=== PATIENT | male | born 1980 | race Two or more races ===

== ENCOUNTER 2020-08-18 12:49 | Emergency (ER) | payer OTHER ==
[~2020-08-18] VITALS: Ht 175.3 cm; Wt 95.3 kg
[2020-08-18] MEDS ORDERED: CYCLOBENZAPRINE10 MG PO (16:35)
[2020-08-18] MEDS ORDERED: KETO10TA2 PO (16:35)
[2020-08-18] MEDS ORDERED: ULTRAM50 MG PO (16:35)
== END 2020-08-18 16:50 | disposition home or self-care (01) ==
LOC: ER 12:49
DX: S00.03XA Contusion of scalp, initial encounter (principal); S30.1XXA Contusion of abdominal wall, initial encounter; S30.0XXA Contusion of lower back and pelvis, initial encounter; S20.211A Contusion of right front wall of thorax, initial encounter; S40.212A Abrasion of left shoulder, initial encounter; W17.89XA Other fall from one level to another, initial encounter; Y93.H9 Activity, other involving exterior property and land maintenance, building and construction; Y92.89 Other specified places as the place of occurrence of the external cause; Y99.8 Other external cause status